=== PATIENT | female | born 1985 | race Caucasian/White ===

== ENCOUNTER 2023-11-30 23:00 | Emergency (ER) | payer MEDICAID, SELFPAY ==
[2023-11-30 23:01] VITALS: BP 104/68; PULSE 89; RESP 16; TEMP 36.4; O2SAT 97; BMI 28.1
[2023-11-30] MEDS: Ibuprofen 600 MG Tablet PO (23:57)
[2023-12-01 00:02] VITALS: BP 104/68; PULSE 74; RESP 16; TEMP 36.4; O2SAT 97
--- NOTE | 2023-12-01 00:03 | EDS_ITS ---
HPI History of Present Illness Chief Complaint: Ear Problem Informant: patient Narrative Narrative: Presents by EMS from [facility] [place] worsening right ear pain over 3 days. Diagnosed with COVID at the center 3 days ago. States myalgias and loss of taste and smell she has had COVID in the past. No dyspnea. She has multiple ear infections as a child with scarring. No history of ear tubes. No medications taken over last 3 days. Prior similar symptoms: Yes PFSH PFSH Medical History unable to obtain Allergy/AdvReac Type Severity Reaction Status Date / Time clindamycin Allergy Swelling Verified 11/30/23 23:01 Surgical History unable to obtain Social History Smoking Status: Current every day smoker tobacco type: cigarettes ROS ROS ED Constitutional Constitutional ED: Denies chills, fever(s) or sweats Eyes Eyes: Denies change in vision ENT ENT ED: Reports ear pain; Denies dysphagia or sore throat Cardiovascular Cardiovascular: Denies chest pain, leg edema, palpitations or racing heartbeat Respiratory/Chest Respiratory/Chest: Denies cough, dyspnea or dyspnea on exertion Gastrointestinal Gastrointestinal: Denies abdominal pain, diarrhea, nausea or vomiting Genitourinary Genitourinary ED: Denies dysuria, hematuria or urinary frequency Musculoskeletal Musculoskeletal: Reports myalgias; Denies back pain, extremity pain or neck pain Integumentary Denies rash or wounds Neurologic Neurologic: Denies headache(s), paresthesias or weakness EXAM Physical Exam Const Vital Signs: 11/30/23 23:01 12/01/23 00:02 Temperature 97.5 F L 97.5 F L Temperature Source Oral Pulse Rate 89 74 Respiratory Rate 16 16 Blood Pressure 104/68 104/68 Blood Pressure Mean 80 80 Pulse Ox 97 97 Positive well nourished and well developed General Appearance ED: well developed and NAD HEENT Reports moist mucous membranes HEENT Narrative: TMs without infection. Scarring noted on the anterior aspect of the TM bilaterally. No fluid or exudates behind this. TMs were intact. No narrowing of the external canal. No tragal tenderness. normocephalic and atraumatic Eyes EOMs intact bilaterally and conjunctivae normal General Eye ED: Yes normal appearance of both eyes Neck no lymphadenopathy and supple General: Negative for tenderness Chest Wall Chest: Negative for tenderness Resp normal respiratory effort and normal air movement Effort and Inspection: symmetric chest movement; Negative for respiratory distress Cardio regular rate, regular rhythm and no murmurs Peripheral Pulses: pulses 2+ throughout GI normal to inspection, nondistended, normoactive bowel sounds and non-tender Palpation: Negative for guarding or rebound tenderness present Back/Spine no CVA tenderness and no thoracic nor lumbar tenderness Extremity normal to inspection General Extremety ED: Negative for edema or tenderness General Extremity: Negative for edema Neuro oriented x3 and no sensory deficits noted Sensorium / Orientation: awake and alert Skin no rashes or lesions noted and no wounds MDM MDM MDM Narrative Medical decision making narrative: Interventions / MDM: Differential diagnosis: COVID-19 infection, right otalgia Diagnosis considered but do not suspect: No clinical otitis media or otitis externa My EKG interpretation: N/A Imaging independently reviewed and interpreted by myself: N/A External documents reviewed: N/A Test considered but not ordered:N/A ED course: Vital stable nontoxic. Current COVID-19 infection with no respiratory complaints or hypoxia. Right otalgia without signs of infection. Discussed using NSAIDs with Tylenol or Motrin for which she states does have some at the facility. She is given Motrin in the ED. Outpatient follow-up. All questions were answered. Re-evaluation: stable Disposition discussed with patient/family/significant other: Patient Case discussed with consulting clinician: N/A This note was generated with Tempeest dictation software. It may contain incorrect words, spelling, and punctuation that were not noted in checking the note before signing. Discharge Plan Triage Chief Complaint: Ear Problem ED Provider: Sam Chan Dx/Rx/DC Orders Clinical Impression: Otalgia of right ear, COVID-19 Instructions: Coronavirus Disease 2019 (COVID-19): Caring for Yourself or Others, ED Earache Without Infection (Adult) Primary Care Provider: Annika Martinez Referrals: Annika Martinez [Primary Care Provider] - Activity Restrictions/Additional Instructions: No signs of ear infection on exam. Use Tylenol or ibuprofen every 6 hours as needed. Print Language: Frisian Disposition Disposition: Home, Self Care Discharge Date/Time: 12/01/23 00:02
== END 2023-12-01 00:02 | disposition home or self-care (01) ==
PROVIDERS: Emergency Provider Emergency Medicine; Visit Provider Emergency Medicine
DX: H92.01 Otalgia, right ear (principal); U07.1 COVID-19; F17.210 Nicotine dependence, cigarettes, uncomplicated
CPT/HCPCS: 99282

== ENCOUNTER → 2024-03-14 | Outpatient (CLI) | payer MEDICAID, SELFPAY ==
[2024-03-14 10:08] LABS: ALB/GLOB Ratio 1.3 RATIO (0.9-2.4); AST(SGOT) 15 U/L (15-37); Alanine Aminotransfer ALT/SGPT 26 U/L (13-56); Albumin, Serum 3.9 g/dL (3.2-5.0); Alkaline Phosphatase 80 U/L (45-117); Anion Gap 3 (5-15); BUN 9 mg/dL (7-18); BUN/Creat Ratio 15.5 RATIO (10-20); Calcium,Total 9.1 mg/dL (8.5-10.1); Chloride 108 mmol/L (98-107); Creatinine, Serum 0.58 mg/dL (0.55-1.02); EST Glomerular Filtration Rate 122 mL/min (>60); Est Glom Filt Rate - Afr Amer 147 mL/min (>60); Free T3 2.9 pg/mL (2.18-3.98); Globulin 3.1 g/dL (2.2-4.2); Glucose 94 mg/dL (74-106); Potassium 4.2 mmol/L (3.5-5.1); Sodium Level 140 mmol/L (136-145); T4 Free Direct 0.92 ng/dL (0.76-1.46); Thyroid Stim Hormone (TSH) 0.791 uIU/mL (0.358-3.740)
[2024-03-14 10:30] LABS: Hemoglobin A1c 5.4 % (3.8-5.6)
[2024-03-17 09:22] LABS: Hepatitis A AB, Total Negative (Negative)
[2024-03-17 15:50] LABS: HIV - WCH Non-Reactive (Nonreactive); Hepatitis B Surface Antibody Non-Reactive; Hepatitis B Surface Antigen Non-Reactive (Nonreactive)
== END | disposition home or self-care (01) ==
PROVIDERS: Referring Provider Family Medicine; Visit Provider Family Medicine
DX: F11.20 Opioid dependence, uncomplicated (principal); R63.5 Abnormal weight gain
CPT/HCPCS: 36415; 80053; 83036; 84439; 84443; 84481; 86703; 86706; 86708; 87340

== ENCOUNTER → 2024-04-23 | Outpatient (CLI) | payer MEDICAID, SELFPAY ==
--- NOTE | 2024-04-23 07:58 | BI_ITS ---
MAMMOGRAPHY - BILATERAL SCREENING REASON FOR EXAM: Female, 39 years old. Routine annual screening examination. PERTINENT HISTORY: Mother with breast cancer. Grandmother with breast cancer. TECHNIQUE: Digital bilateral breast marcell (3D mammographic acquisition) in the CC and MLO projections. 2-D mediolateral oblique (MLO) and craniocaudad (CC) views of both breasts were obtained. CAD: Full Field Digital Mammography with Computer Added Detection was performed. COMPARISON: Comparison is made with prior last examination dated April 25, 2021. FINDINGS: Breast Composition: The breasts are heterogeneously dense, which may obscure small masses. There are no dominant masses or suspicious calcifications. Stable small bilateral axillary lymph nodes. No other significant abnormalities are identified. There has been no significant change since the prior study. BI/SCRN MAMM (CAD)W/MARCELL BILAT IMPRESSION: Stable bilateral screening mammogram. Yearly follow-up mammogram recommended. (A) ASSESSMENT CATEGORY: BIRADS Category 2: Benign. A letter regarding these results will be sent to the patient by the facility within 30 days. Approximately 10% of breast cancers are not detected by mammography. A normal mammogram should not delay biopsy of a clinically suspicious abnormality. [id number] Electronically Signed: Gino Olivo MD at 10:43 EST ,
== END | disposition home or self-care (01) ==
LOC: OPBI 07:56
PROVIDERS: Referring Provider Nurse Practitioner Family; Visit Provider Nurse Practitioner Family
DX: Z12.31 Encounter for screening mammogram for malignant neoplasm of breast (principal)
CPT/HCPCS: 77063; 77067

== ENCOUNTER 2024-05-24 15:18 | Emergency (ER) | payer MEDICAID, SELFPAY ==
[2024-05-24 15:19] VITALS: BP 114/84; PULSE 78; RESP 14; TEMP 36.1; O2SAT 100; BMI 33.5
--- NOTE | 2024-05-24 15:36 | EDS_ITS ---
HPI <STEPHANIE Cruz - Last Filed: 05/24/24 16:05> History of Present Illness Chief Complaint: Upper Extremity Injury Narrative Narrative: 39-year-old female was working at [employer] and hit her left thumb on the counter causing it to bend backwards. She presents for evaluation of thumb pain. She is left-hand dominant. She denies weakness numbness or tingling. PFSH <STEPHANIE Cruz - Last Filed: 05/24/24 16:05> PFS Medical History unable to obtain Allergy/AdvReac Type Severity Reaction Status Date / Time clindamycin Allergy Swelling Verified 05/24/24 15:22 Surgical History unable to obtain Social History (Updated 05/24/24 @ 15:27 by Sarah Chavez) housing: apartment Smoking Status: Current every day smoker tobacco type: cigarettes ROS <STEPHANIE Cruz - Last Filed: 05/24/24 16:05> ROS ED ROS Narrative Neuro: Negative for motor/sensory dysfunction. Skin: Negative for rash, abscess, or wound. Musc: Positive for left thumb pain, trauma. EXAM <STEPHANIE Cruz - Last Filed: 05/24/24 16:05> Physical Exam Narrative Exam Narrative: CONST: Patient sitting in no acute distress. EYES: Normal inspection. NECK: Normal inspection. SKIN: Color normal, no rash, warm, dry, intact. EXTREMITIES: Normal appearance of left upper extremity. Tender over the first m etacarpal and distal phalanx of the thumb without deformity or crepitus. No tenderness of the elbow forearm wrist or snuffbox. Normal motor and sensory function of median radial and ulnar distribution, 2+ radial pulse and brisk cap refill. NEURO: Alert and answering questions appropriately. PSYCH: Normal affect. Const Vital Signs: 05/24/24 15:19 Temperature 96.9 F L Temperature Source Temporal Pulse Rate 78 Respiratory Rate 14 Blood Pressure 114/84 H Blood Pressure Mean 94 Pulse Ox 100 Oxygen Delivery Method Room Air MDM <STEPHANIE Cruz - Last Filed: 05/24/24 16:05> MDM MDM Narrative Medical decision making narrative: Differential includes thumb sprain versus fracture 39-year-old female hyperextended her left thumb and presents with pain. Her extremity appears normal without signs of trauma. She is tender over the thumb but has no wrist or snuffbox tenderness. Thumb opposition is intact and there are no focal neurological deficits. X-ray shows no acute findings. She was given a finger splint with instructions to ice and take [id number] pain medications as needed. She was discharged in stable condition. ED attending patient left hand shows no fracture or dislocation. <Dr. Lizandro Perea, DO - Last Filed: 05/24/24 16:04> [facility] Treatment and Re-Evaluation Narrative: ED attending note: I evaluated the patient in conjunction with the RESHMA. I agree with his/her statements and above findings. I have personally performed a face to face assessment of the patient and have reviewed the RESHMA Note. I performed a substantive portion of the visit including all aspects of the following. I personally saw the patient performed chart review, physical exam, reviewed labs, imaging (if obtained), and formulated a treatment and management plan. 39-year-old female presents with thumb pain. She states she suffered minor trauma at work injuring her left first digit. Exam: Intact 5/5 strength with ok sign (median), intact finger abduction (ulnar) intact wrist extension (radial n). Intact sensation in the radial, ulnar, and median nerve distributions. No obvious deformities. Intact tenderness structures in both flexion and extension. Thumb is warm well-perfused no discoloration. No sign of infection Obtained an x-ray. X-ray was read reviewed personally by myself showed no evidence of obvious bony abnormality. Radiologist agrees. Gave ibuprofen. Splint to the patient's thumb. She is appropriate discharge home. She did not request to claim Workmen's Compensation. Patient is appropriate discharge. This note was generated with [employer] dictation software. It may contain incorrect words, spelling, and punctuation that were not noted in review of the chart prior to signing. Discharge Plan Triage Chief Complaint: Upper Extremity Injury ED Midlevel Provider: Cheri Ramirez ED Provider: Lizandro Perea Dx/Rx/DC Orders Clinical Impression: Left thumb sprain Instructions: ED Finger Sprain Primary Care Provider: Annika Martinez Referrals: Annika Martinez [Primary Care Provider] - Activity Restrictions/Additional Instructions: Your x-ray shows no broken bones. Ice and take Tylenol or Motrin as needed. Print Language: Turkmen Disposition Disposition: Home, Self Care
--- NOTE | 2024-05-24 15:40 | RAD_ITS ---
PROCEDURE: HAND MIN 3 VIEWS REASON FOR EXAM: Left thumb pain TECHNIQUE: 3 view(s) of the left hand COMPARISON: None. FINDINGS: No visible fracture. No suspicious bone lesion. Normal alignment. Soft tissues are unremarkable. RAD/Hand Min 3 Views IMPRESSION: No acute osseous abnormality in the left hand [facility]
[2024-05-24] MEDS: Ibuprofen 600 MG Tablet PO (15:48)
[2024-05-24 16:01] VITALS: BP 114/84; PULSE 78; RESP 14; TEMP 36.1; O2SAT 100
== END 2024-05-24 16:09 | disposition home or self-care (01) ==
PROVIDERS: Emergency Provider Emergency Medicine; Visit Provider Emergency Medicine
DX: S63.602A Unspecified sprain of left thumb, initial encounter (principal); W22.09XA Striking against other stationary object, initial encounter; Y92.511 Restaurant or cafe as the place of occurrence of the external cause; Y99.0 Civilian activity done for income or pay; F17.210 Nicotine dependence, cigarettes, uncomplicated
CPT/HCPCS: 73130; 99282